=== PATIENT | male | born 2005 | race Caucasian/White ===

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

== ENCOUNTER 2023-05-31 17:20 | Emergency (ER) | payer OTHER, SELFPAY ==
[2023-05-31 17:31] VITALS: BP 159/99; PULSE 77; RESP 18; TEMP 36.6; O2SAT 98
[2023-05-31 17:55] VITALS: RESP 18
[2023-05-31] MEDS: hydrOXYzine HCL 25 MG TAB PO (17:55)
--- NOTE | 2023-05-31 18:00 | RT.EKG_ITS ---
APPROVED REPORT Exam: Resting ECG Reason for Exam: anxiety Patient Location: E HR:48 bpm ECG Measurements Heart Rate 48 AXIS TX 168 P 46 QRSd 100 QRS 58 QT 428 T 57 QTc 383 Conclusion Sinus bradycardia...rate< 60 Sinus bradycardia at a rate of 48 with interventricular conduction delay. Normal axis. TX and QTc w ithin normal limits. T wave inversion in V2. No prior for comparison. No acute injury pattern.
[2023-05-31 18:22] LABS: Abs Immature Grans 0.03 10^3/uL (0.0-0.06); Absolute Basophil Count 0.03 10^3/uL (0.0-0.2); Absolute Eosinophil Count 0.07 10^3/uL (0.0-0.7); Absolute Lymphocyte Count 2.55 10^3/uL (1.2-3.4); Absolute Monocyte Count 0.85 10^3/uL (0.1-0.8); Absolute Neutrophil Count 6.97 10^3/uL (1.2-6.7); Basophils % 0.3; Eosinophils % 0.7; HCT 47.7 % (40.0-50.0); HGB 16.6 g/dL (13.5-17.5); Immature Grans % 0.3; Lymphocytes % 24.3; MCH 30.2 pg (27.0-33.0); MCHC 34.8 % (32.0-36.0); MCV 87 fL (80-95); Monocytes % 8.1; Neutrophils % 66.3; Platelet Count 189 10^3/uL (130-400); RBC 5.49 10^6/uL (4.36-5.78); RDW 11.7 % (11.8-14.1); RDW-SD 37.2 fL
[2023-05-31 18:27] LABS: Bilirubin Negative (Negative); Blood Negative (Negative); Clarity Clear (Clear); Glucose Negative (Negative); Ketones Negative (Negative); Leukocyte Esterase Negative (Negative); Nitrite Negative (Negative); pH 6.5 (5-8)
[2023-05-31 18:41] LABS: *AMPHETAMINES SCREEN URINE Negative (Negative); *BARBITURATES SCREEN URINE Negative (Negative); *BENZODIAZEPINES SCREEN URINE Negative (Negative); Cannabinoids THC Positive (Negative); Cocaine Screen,Urine Negative (Negative); METHADONE URINE SCREEN Negative (Negative); OPIATES URINE SCREEN Negative (Negative)
[2023-05-31 18:43] LABS: Tricyclic Antidepressants Negative (Negative)
[2023-05-31 18:49] LABS: ALT 17 U/L (16-63); AST 24 U/L (15-37); Albumin 4.8 g/dL (3.4-5.0); Alkaline Phosphatase 57 U/L (46-116); Anion Gap 9.5 mmol/L (3-11); BUN 15 mg/dL (7-18); Bilirubin, Total 1.3 mg/dL (0.2-1.0); CO2 27.5 mmol/L (21.0-32.0); CREATININE 1.1 mg/dL (0.70-1.30); Calcium 9.8 mg/dL (8.5-10.1); Chloride 102 mmol/L (98-107); Estimated GFR 98.56 (mL/min/1.73m2); Glucose 84 mg/dL (74-106); Magnesium 2.2 mg/dL (1.8-2.4); Potassium 3.8 mmol/L (3.5-5.1); Sodium 139 mmol/L (136-145); Total Protein 7.9 g/dL (6.4-8.2)
--- NOTE | 2023-05-31 20:17 | ED.GENADUL_ITS ---
Discharge Plan Disposition Patient Disposition: Home Condition: Stable Discharge Details Clinical Impression: Anxiety Primary Care Provider: David Can ED Provider: Debra Johnson Home Meds and New Rx's Prescriptions: New hydroxyzine HCl 25 mg tablet 25 mg PO QID PRNQty: 20 0RF Discharge Instructions Instructions: Anxiety (ED) Additional Instructions: follow up with mental health as planned. Referrals: David Can MD [Primary Care Provider] - Medical Decision Making This is a 18-year-old male patient with increasing anxiety and depression no suicidal or homicidal ideation medically he has been stable but he has concerns he has been worried about including a bat exposure about a year and a half ago. There was no bite and he just opened a window and the bat flew out. He has had no fever chills or recent illness. Medical screening will be completed with routine lab. Medical Records Medical records reviewed: Yes I reviewed the patient's medical records. HPI General Mode of arrival: ambulatory . Date/Time Provider Initiated Documentation: 05/31/23 17:28 . Limitations to Documentation: no limitations . Information obtained by: patient . HPI Narrative: 18-year-old male patient no significant past medical history but does report history of suicidal ideation when he was approximately 16 years old prior States That He Did support from family and worked through that but over the past several weeks has had increasing anxiety and depression. He states his especially to to worrying about the medical issues surrounding a bat exposure months ago where someone told him that he is at risk for rabies and dying rabies. Related Data Home Medications Medication Instructions Recorded Confirmed hydroxyzine HCl 25 mg tablet 25 mg PO QID PRN #20 tabs 05/31/23 Previous Rx's Medication Instructions Recorded hydroxyzine HCl 25 mg tablet 25 mg PO QID PRN #20 tabs 05/31/23 Allergies Allergy/AdvReac Type Severity Reaction Status Date / Time No Known Allergies Allergy Unverified 06/09/19 16:10 General Stated Complaint: Anxiety MCKAY: 3 Review of Systems All systems reviewed & are unremarkable except as noted in HPI and below PFSH All Active Problems (Updated 05/31/23 @ 20:43 by Debra Johnson NP) Anxiety (Chronic) Social History Smoking/Tobacco Use Status: Never Smoking risk assessment performed?: Yes Alcohol Intake: never Drug use: Daily Substance use type: marijuana Do you feel safe at home: Yes Do you feel safe in your relationship?: Yes Exam Const General: cooperative, comfortable and no acute distress Nutritional Appearance: average body habitus and thin Orientation: alert, awake and oriented x3 HENMT Head: normal to inspection, normocephalic and atraumatic Mouth: oral mucosae normal Neck Neck: normal visual inspection Chest Chest: normal inspection of the chest Resp Effort & Inspection: normal respiratory effort Auscultation: clear to auscultation bilaterally Cardio Rate: regular rate Rhythm: regular rhythm GI Inspection: normal to inspection Skin General skin exam: no rashes or lesions noted Neuro General: patient alert, patient awake and patient oriented x3 Extrem General: normal to inspection and full ROM Course Vital Signs Vital signs: Vital Signs Temperature 36.6 C 05/31/23 17:31 Pulse 77 05/31/23 17:31 Respiratory Rate 18 05/31/23 17:31 Blood Pressure 159/99 H 05/31/23 17:31 Pulse Oximetry 98 05/31/23 17:31 Temperature 36.6 C 05/31/23 17:31 Temperature Source Temporal Artery Scan 05/31/23 17:31 Pulse 77 05/31/23 17:31 Respiratory Rate 18 05/31/23 17:55 Respiratory Effort Normal, Non-Labored 05/31/23 17:55 Respiratory Depth Normal 05/31/23 17:55 Respiratory Pattern Normal 05/31/23 17:55 Blood Pressure 159/99 H 05/31/23 17:31 Blood Pressure Position Sitting 05/31/23 17:31 Pulse Oximetry 98 05/31/23 17:31 Oxygen Delivery Method Room Air 05/31/23 17:31 Oxygen Flow Rate 0 05/31/23 17:31 Pain Level 0 05/31/23 17:31 Lab/Test Results Lab/Test Results: Laboratory Tests Range/Units 05/31/23 05/31/23 05/31/23 18:03 18:04 18:07 WBC (4.4-10.8) 10^3/uL 10.50 RBC (4.36-5.78) 10^6/uL 5.49 Hgb (13.5-17.5) g/dL 16.6 Hct (40.0-50.0) % 47.7 MCV (80-95) fL 87 MCH (27.0-33.0) pg 30.2 MCHC (32.0-36.0) % 34.8 RDW (11.8-14.1) % 11.7 L Plt Count (130-400) 10^3/uL 189 MPV (8.0-11.0) fL 11.0 Immature Gran % 0.3 Neutrophils % 66.3 Lymphocytes % 24.3 Monocytes % 8.1 Eosinophils % 0.7 Basophils % 0.3 Nucleated RBC % (0.0-0.3) % 0.0 Absolute Neutrophils (1.2-6.7) 10^3/uL 6.97 H Absolute Lymphocytes (1.2-3.4) 10^3/uL 2.55 Absolute Monocytes (0.1-0.8) 10^3/uL 0.85 H Absolute Eosinophils (0.0-0.7) 10^3/uL 0.07 Absolute Basophils (0.0-0.2) 10^3/uL 0.03 Sodium (136-145) mmol/L 139 Potassium (3.5-5.1) mmol/L 3.8 Chloride (98-107) mmol/L 102 Carbon Dioxide (21.0-32.0) mmol/L 27.5 Anion Gap (3-11) mmol/L 9.5 BUN (7-18) mg/dL 15 Creatinine (0.70-1.30) mg/dL 1.1 Est GFR (CKD-EPI 2020) (mL/min/1.73m2) 98.56 Glucose (74-106) mg/dL 84 Calcium (8.5-10.1) mg/dL 9.8 Magnesium (1.8-2.4) mg/dL 2.2 Total Bilirubin (0.2-1.0) mg/dL 1.3 H AST (15-37) U/L 24 ALT (16-63) U/L 17 Alkaline Phosphatase (46-116) U/L 57 Total Protein (6.4-8.2) g/dL 7.9 Albumin (3.4-5.0) g/dL 4.8 TSH (0.36-3.74) uIU/mL 0.40 Urine Color (Yellow) Yellow Urine Clarity (Clear) Clear Urine pH (5-8) 6.5 Ur Specific [place] (1.005-1.025) 1.020 Urine Protein (Negative) mg/dL Negative Urine Ketones (Negative) mg/dL Negative Urine Blood (Negative) Negative Urine Nitrite (Negative) Negative Urine Bilirubin (Negative) Negative Urine Urobilinogen (Up to 0.2) mg/dL 1.0 H Ur Leukocyte Esterase (Negative) Negative Urine Glucose (Negative) mg/dL Negative Urine Opiates Screen (Negative) Negative Urine Methadone Screen (Negative) Negative Ur Barbiturates Screen (Negative) Negative Ur Tricyclics Screen (Negative) Negative Ur Amphetamines Screen (Negative) Negative U Benzodiazepines Scrn (Negative) Negative Urine Cocaine Screen (Negative) Negative Ur THC Screen (Negative) Positive A
[2023-05-31 20:41] VITALS: BP 136/83; PULSE 50; RESP 18
== END 2023-05-31 20:53 | disposition home or self-care (01) ==
PROVIDERS: Emergency Provider Nurse Practitioner Acute Care; PCP Internal Medicine
DX: R41.9 Unspecified symptoms and signs involving cognitive functions and awareness (principal); F32.A Depression, unspecified; R00.1 Bradycardia, unspecified
CPT/HCPCS: 80053; 80307; 93005; 99283; 81003; 83735; 84443; 85025; 93010